=== PATIENT | male | born 1950 | race Caucasian/White ===

== ENCOUNTER → 2017-09-20 | Outpatient (CLI) | payer MEDICARE, BC ==
--- NOTE | 2017-09-20 11:36 | BD ---
EXAMINATION TYPE: MG DEXA axial skeleton. DATE OF EXAM: 09/20/2017 COMPARISON: NONE CLINICAL HISTORY: M81.0 Osteoporosis Height: Weight: 189.7 FRAX RISK QUESTIONS: Alcohol (3 or more units per day): no Family History (Parent hip fracture): no Glucocorticoids (More than 3mos): no (Ex: prednisone, prednisolone, methylprednisolone, dexamethasone, and hydrocortisone). History of Fracture in Adulthood: yes Secondary Osteoporosis: 1. Type 1 Diabetes: no 2. Hyperthyroidism: no 3. Menopause before 45: na 4. Malnutrition: no 5. Chronic liver disease: no Rheumatoid Arthritis: no Current Tobacco Use: no RISK FACTORS HISTORY OF: Hip Fracture (Right/Left): no Spine Fracture: no History of Wrist Fracture: no Surgery to Spine/Hip(right/left)/Wrist (right/left): no Family History of Osteoporosis: no Active: yes Diet low in dairy products/other sources of calcium: yes Lost more than 2 inches in height since high school: no Frequent falls: no Poor Health: no Hyperparathyroidism: no Adrenal Insufficiency: no MEDICATIONS: topomax. coumadin, asacol, lopid, simvastatin, amatripoline, pain med for migraines Thyroid Medications: synthroid How Lon years Additional History: current foot fx- broke it five months ago EXAM MEASUREMENTS: Bone mineral densitometry was performed using the [facility]. Bone mineral density as measured about the Lumbar spine is: ----- L1-L4(G/cm2): 1.169 T Score Values are as follows: ----- L2: -0.5 ----- L3: 0.5 ----- L4: 0.2 ----- L1-L4:-0.1 Bone mineral density baseline Bone mineral density about the R hip (g/cm2): 0.971 Bone mineral density about the L hip (g/cm2): 0.912 T Score values are as follows: -----R Neck: -0.5 -----L Neck: -0.9 -----R Total: 0.8 -----L Total: 0.3 Bone mineral density study of: baseline IMPRESSION: No evidence for osteoporosis or osteopenia. NOTE: T-SCORE=SD OF THE YOUNG ADULT MEAN.
== END | disposition home or self-care (01) ==
LOC: RADBDWWP 09:16
PROVIDERS: ATTEND Internal Medicine Geriatric Medicine
DX: M81.0 Age-related osteoporosis without current pathological fracture (principal)
CPT/HCPCS: 77080

== ENCOUNTER → 2017-12-27 | Outpatient (CLI) | payer MEDICARE, BC ==
--- NOTE | 2017-12-27 14:41 | CT ---
EXAMINATION TYPE: CT foot LT wo con DATE OF EXAM: 12/27/2017 COMPARISON: NONE HISTORY: Lt foot pain, displaced fracture fifth metatarsal subsequent encounter with delayed healing per order. CT DLP: 236 mGycm Automated exposure control for dose reduction was used. FINDINGS: There is fairly well corticated nonhealed fracture through the plantar base of the fifth metatarsal s een best on sagittal image 6 with roughly 3 mm gap that remains present. Osseous structures are demineralized likely from disuse hind to midfoot level causing pseudopermeativ e appearance. Lisfranc joints are maintained. Linear density in the superior lateral calcaneus is of uncertain etiology on sagittal image 13. No additional acute fracture or dislocation is seen. There is mild to moderate diffuse subcutaneous e jabari. Ankle mortise symmetry is preserved. Normal sinus tarsi fat is present. IMPRESSION: THERE IS NONHEALED MILDLY DISPLACED OR DISTRACTED BASE OF FIFTH METATARSAL FRACTURE ALONG PLANTAR DIANA FACE. INCOMPLETE HEALED PECK FRACTURE.
== END ==
LOC: RADCTMAIN 13:51
PROVIDERS: ATTEND Orthopaedic Surgery
DX: S92.352G Displaced fracture of fifth metatarsal bone, left foot, subsequent encounter for fracture with delayed healing (principal)
CPT/HCPCS: 36415; 82306

== ENCOUNTER → 2018-01-28 | Outpatient (CLI) | payer MEDICARE, BC ==
--- NOTE | 2018-01-28 15:43 | XR ---
EXAMINATION TYPE: XR chest 2V DATE OF EXAM: 01/28/2018 COMPARISON: Chest x-ray May 05, 2016. CTA chest June 09, 2016. HISTORY: Deep cough for 2 months. Bronchitis per order. TECHNIQUE: Frontal and lateral views of the chest are obtained. FINDINGS: Patchy left greater than bibasilar scarring and/or atelectasis. There is no suspicious fo chevy air space opacity, pleural effusion, or pneumothorax seen. The cardiac silhouette size is within normal limits. The osseous structures are intact. IMPRESSION: No suspicious acute pulmonary process.
== END | disposition home or self-care (01) ==
LOC: RADXRMAIN 15:04
PROVIDERS: ATTEND Internal Medicine Geriatric Medicine
DX: R05 Cough (principal)
CPT/HCPCS: 71046

== ENCOUNTER → 2018-02-04 | Outpatient (CLI) | payer MEDICARE, BC ==
--- NOTE | 2018-02-04 10:56 | CT ---
EXAMINATION TYPE: CT chest w con DATE OF EXAM: 02/04/2018 COMPARISON: 06/09/2016 HISTORY: Shortness of breath CT DLP: 311.9 mGycm, Automated exposure control for dose reduction was used. CONTRAST: Performed injected with 80 mL of Isovue 300. TECHNIQUE: Axial images were obtained at 5 mm thick sections. Reconstructed images are reviewed on [employer] computer in the coronal plane. FINDINGS: Portion of the thyroid visualized is normal. No suspicious lung nodules or focal infiltrates are present. No enlarged mediastinal or hilar adenopathy is evident. The ascending aorta diameter at the level o f the main pulmonary artery is 3.6 cm. The main pulmonary artery diameter at the bifurcation is 2.[address] sections are obtained through the upper abdomen. Abdomen is essentially unremarkable. Jamshid e reflux into the superior portion inferior vena cava may be present. IMPRESSIONS: 1. No acute pulmonary emboli.
== END | disposition home or self-care (01) ==
LOC: RADCTMAIN 08:09
PROVIDERS: ATTEND Internal Medicine Geriatric Medicine
DX: R06.02 Shortness of breath (principal)
CPT/HCPCS: 71260; Q9967

== ENCOUNTER → 2018-02-10 | Outpatient (CLI) | payer MEDICARE, BC | LOC: LABWHC1 14:28 | PROVIDERS: ATTEND Orthopaedic Surgery | DX: E55.9 Vitamin D deficiency, unspecified (principal) | CPT/HCPCS: 36415; 82306 ==

== ENCOUNTER → 2018-03-18 | Outpatient (CLI) | payer MEDICARE, BC ==
--- NOTE | 2018-03-18 15:21 | XR ---
Abdomen HISTORY: Abdominal pain Frontal view of the abdomen on 2 images Correlated to prior exam 05/21/2016 Lung bases are clear. There is no evident bowel obstruction or pneumoperitoneum. Bone mineralization is maintained, spinal curvature could be positional. Probable vascular calcifications again noted wit hin the pelvis. IMPRESSION: Stable exam, nonspecific abdomen
== END | disposition home or self-care (01) ==
LOC: RADXRMAIN 12:25
PROVIDERS: ATTEND Nurse Practitioner Family
DX: R10.9 Unspecified abdominal pain (principal)
CPT/HCPCS: 74018

== ENCOUNTER 2021-03-03 00:01 | Emergency (ER) | payer MEDICARE, BC ==
[2021-03-03 00:08] VITALS: TEMP 99.3
[2021-03-03] MEDS ORDERED: DIPH,PERTUS(ACELL)TETVAC-LF 0.5 ML VIAL IM ONE (00:17)
--- NOTE | 2021-03-03 00:41 | XR ---
EXAMINATION TYPE: XR hand complete RT DATE OF EXAM: 03/03/2021 COMPARISON: NONE HISTORY: Laceration TECHNIQUE: 3 views FINDINGS: There is narrowing and spurring at the first carpometacarpal joint. I see no fracture nor d islocation. There is no sign of a foreign body. The metacarpals are intact. There is some osteoarthritic narrowing of the second MP joint. 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 No fracture seen. No evidence of radiop aque foreign body.
[2021-03-03] MEDS ORDERED: LIDOCAINE 1%-EPI 1:100,000 20 ML VIAL SQ STA (00:59)
[2021-03-03] MEDS ORDERED: BACITRACIN OINT 1 EACH PACKET TOPICAL ONE (01:18)
--- NOTE | 2021-03-03 01:48 | ED ---
Wound/Laceration HPI - General Chief Complaint: Wound/Laceration Stated Complaint: Hand Laceration Time Seen by Provider: 03/03/21 00:11 Source: patient Mode of arrival: ambulatory Limitations: no limitations - History of Present Illness Initial Comments: 70 year-old male patient presents to the emergency department for evaluation of bleeding wound to the right hand. Patient states that he broke a drill bit off and it punctured through his hand. States this occurred around 7pm this evening. He did apply bandages but the bleeding would not stop so he presented here for further evaluation. He takes xarelto and baby aspirin. States his last tetanus was 8 years ago. Denies significant pain to the area. Denies any numbness or tingling to the hand. - Related Data Home Medications Medication Instructions Recorded Confirmed Acetaminophen [Tylenol] 1,000 mg PO Q4-6H PRN 05/05/16 06/09/16 Amitriptyline HCl 25 mg PO HS 05/05/16 06/09/16 Butalb/Acetaminophen/Caffeine 1 - 2 tab PO Q6H PRN MDD 6 TABLETS 05/05/16 06/09/16 [Rlfnlr-Pkckydzh-Cokp 50-325-40] IN 24 HOURS Ibuprofen [Motrin] 400 mg PO Q6HR PRN 05/05/16 06/09/16 Levothyroxine Sodium [Synthroid] 125 mcg PO DAILY 05/05/16 06/09/16 Simvastatin 40 mg PO HS 05/05/16 06/09/16 gemfibroziL [Gemfibrozil] 600 mg PO HS 05/05/16 06/09/16 Pantoprazole Sodium [Protonix] 40 mg PO DAILY 06/09/16 06/09/16 rOPINIRole HCL [Requip] 0.5 mg PO HS 06/09/16 06/09/16 Previous Rx's Medication Instructions Recorded Aspirin EC [Ecotrin] 81 mg PO DAILY #0 06/13/16 Warfarin [Coumadin] 7.5 mg PO DAILY@1800 #90 tab 06/13/16 Cephalexin [Keflex] 500 mg PO BID #14 cap 03/03/21 Allergies Allergy/AdvReac Type Severity Reaction Status Date / Time No Known Allergies Allergy Verified 03/03/21 00:08 Review of Systems ROS Statement: Those systems with pertinent positive or pertinent negative responses have been documented in the HPI. ROS Other: All systems not noted in ROS Statement are negative. Past Medical History Past Medical History: Deep Vein Thrombosis (DVT), GERD/Reflux, Hyperlipidemia, Pulmonary Embolus (PE), Sleep Apnea/CPAP/BIPAP, Thyroid Disorder Additional Past Medical History / Comment(s): colitits. Other HX: DVT and bilateral PEs in 2011, AMANDA with CPAP, narcolepsy, grave's disease with thyroidectomy, migraines, bilateral tinnitis, bilateral clark's point, arthritis in bilateral hands, bronchitis as child. History of Any Multi-Drug Resistant Organisms: None Reported Additional Past Surgical History / Comment(s): 05/10/16 colonoscopy, 04/2016 lumbar puncture, thyroidectomy , at [place] they cut above eyebrows to help with migraines- 2 yrs ago Past Anesthesia/Blood Transfusion Reactions: Motion Sickness Past Psychological History: No Psychological Hx Reported Smoking Status: Never smoker Past Alcohol Use History: None Reported Past Drug Use History: None Reported - Past Family History Father Family Medical History: COPD, Coronary Artery Disease (CAD) Additional Family Medical History / Comment(s): 1991 Mother Family Medical History: Asthma, Congestive Heart Failure (CHF), Diabetes Mellitus Additional Family Medical History / Comment(s): 2008 Brother(s) Family Medical History: No Reported History Sister(s) Family Medical History: No Reported History Son(s) Family Medical History: Seizure Disorder Daughter(s) Family Medical History: No Reported History General Exam Limitations: no limitations General appearance: alert, in no apparent distress, other (This is a well developed, well nourished adult male in no acute distress. Vital signs upon presentation are temperature 99.3F, pulse 83, respirations 20, blood pressure 150/89, pulse ox 99% on room air.) Respiratory exam: Present: normal lung sounds bilaterally. Absent: respiratory distress, wheezes, rales, rhonchi, stridor Cardiovascular Exam: Present: regular rate, normal rhythm, normal heart sounds. Absent: systolic murmur, diastolic murmur, rubs, gallop, clicks Extremities exam: Present: full ROM, normal capillary refill, other (There is puncture noted to the dorsal aspect of the right hand. There is active bleeding. Skin is otherwise pink, warm, dry. Cap refill less than 3 seconds. Radial pulses 2+.). Absent: tenderness, pedal edema, joint swelling, calf tenderness Neurological exam: Present: alert, oriented X3, CN II-XII intact Psychiatric exam: Present: normal affect, normal mood Skin exam: Present: warm, dry, intact, normal color. Absent: rash Course Vital Signs 03/03/21 03/03/21 00:05 02:01 Temperature 99.3 F Pulse Rate 83 78 Respiratory 20 18 Rate Blood Pressure 150/89 131/87 O2 Sat by Pulse 99 98 Oximetry Medical Decision Making - Medical Decision Making 70-year-old male patient presents for evaluation of puncture wound to the right hand. Physical examination did reveal puncture to the dorsal aspect of the right hand that was actively bleeding. Pressure dressing was removed bleeding continued. I did inject the area with lidocaine with epi. Dressing was reapplied. Reevaluated about 30 minutes, no more active bleeding was noted. X- ray was reviewed and did reveal evidence for a tiny metallic foreign body. I did inform patient of all results will be discharged on antibiotics. Instructed to follow-up with his primary care physician for recheck in 1-2 days. Return parameters were discussed in detail. He verbalizes understanding and agrees with this plan. My attending is Dr. Hernandez. - Radiology Data Radiology results: report reviewed, image reviewed Disposition Clinical Impression: Puncture wound of right hand Disposition: HOME SELF-CARE Condition: Good Instructions (If sedation given, give patient instructions): Puncture Wound (ED) Additional Instructions: Keep wound clean and dry. Leave initial dressing on for 24 hours. Cleanse twice daily with warm water and antibacterial soap. Complete antibiotic prescription in full. Follow up with the primary care physician for recheck in 1-2 days. Return for any new, worsning, or concerning symptoms. Prescriptions: Cephalexin [Keflex] 500 mg PO BID #14 cap Is patient prescribed a controlled substance at d/c from ED?: No Referrals: Faisal Cali MD [Primary Care Provider] - 1-2 days Time of Disposition: 01:48
[2021-03-03 02:02] VITALS: BP 131/87; PULSE 78; RESP 18
== END 2021-03-03 02:02 | disposition home or self-care (01) ==
LOC: EC 00:01
DX: S61.431A Puncture wound without foreign body of right hand, initial encounter (principal); K21.9 Gastro-esophageal reflux disease without esophagitis; E78.5 Hyperlipidemia, unspecified; G47.33 Obstructive sleep apnea (adult) (pediatric); E07.9 Disorder of thyroid, unspecified; Z86.711 Personal history of pulmonary embolism; Z99.81 Dependence on supplemental oxygen; Z79.82 Long term (current) use of aspirin; Z86.718 Personal history of other venous thrombosis and embolism; X58.XXXA Exposure to other specified factors, initial encounter; Z23 Encounter for immunization
CPT/HCPCS: 90471; 90715; 96372; 99283

== ENCOUNTER → 2024-05-24 | Outpatient (CLI) | payer MEDICARE, BC ==
[2024-05-24 15:12] LABS: Basophils # (A) 0.08 X 10*3/uL (0.00-0.10); Eosinophils # (A) 0.03 X 10*3/uL (0.04-0.35); Eosinophils % (A) 0.4 %; HCT 45.2 % (39.6-50.0); HGB 14.8 g/dL (13.0-17.0); Lymphocytes # (A) 1.78 X 10*3/uL (0.90-5.00); Lymphocytes % (A) 22.1 %; MCHC 32.7 g/dL (32.0-37.0); MCV 97.8 FL (80.0-97.0); Mean Platelet Volume 10.2 FL (9.5-12.2); Monocytes # (A) 0.65 X 10*3/uL (0.20-1.00); Monocytes % (A) 8.1 %; NRBC Per 100 WBC 0 X 10*3/uL (0.00-0.01); Neutrophils # (A) 5.36 X 10*3/uL (1.80-7.70); Neutrophils % (A) 66.7 %; Platelet Count 293 X 10*3/uL (140-440); RBC 4.62 X 10*6/uL (4.40-5.60); WBC 8.04 X 10*3/uL (4.50-10.00)
[2024-05-24 15:13] LABS: ALT 27 U/L (10-49); AST 16 U/L (14-35); Albumin 4.4 g/dL (3.8-4.9); Albumin/Globulin Ratio 1.63 Ratio (1.60-3.17); Alkaline Phosphatase 98 U/L (41-126); BUN/Creat Ratio 18.25 Ratio (12.00-20.00); Blood Urea Nitrogen 21.9 mg/dL (9.0-27.0); C Reactive Protein <0.30 mg/dL (0.00-0.80); Calcium 9.8 mg/dL (8.7-10.3); Carbon Dioxide 22.2 mmol/L (21.6-31.8); Chloride 106 mmol/L (96-109); Globulin 2.7 g/dL (1.6-3.3); Glucose 97 mg/dL (70-110); Potassium 4.4 mmol/L (3.5-5.5); Sodium 140 mmol/L (135-145); Total Bilirubin 0.5 mg/dL (0.3-1.2); Total Protein 7.1 g/dL (6.2-8.2)
[2024-05-24 15:40] LABS: Erythrocyte Sedimentation Rate 19 mm/Hr (0-20)
== END | disposition home or self-care (01) ==
LOC: LABWHC1 11:28
PROVIDERS: ATTEND Nurse Practitioner Family
DX: K51.90 Ulcerative colitis, unspecified, without complications (principal)
CPT/HCPCS: 36415; 80053; 83993; 85025; 85652; 86140

== ENCOUNTER → 2024-06-13 | Outpatient (CLI) | payer MEDICARE, BC ==
--- NOTE | 2024-06-13 10:13 | XR ---
EXAMINATION TYPE: XR abdomen 1V DATE OF EXAM: 06/13/2024 COMPARISON: NONE HISTORY: Pain TECHNIQUE: One view abdominal series FINDINGS: The osseous structures are intact. The bowel gas pattern is nonspecific. Lung bases are clear. Bila teral SI joint arthropathy and hypertrophic hip arthropathy. Vascular phleboliths noted. Fecal debris along the right colon. IMPRESSION: 1. Nonspecific abdomen. [facility], , 06/13/2024 10:11 AM
== END | disposition home or self-care (01) ==
LOC: RADXRMAIN 09:38
PROVIDERS: ATTEND Internal Medicine Gastroenterology
DX: R10.30 Lower abdominal pain, unspecified (principal)
CPT/HCPCS: 74018

== ENCOUNTER → 2024-06-20 | Outpatient (CLI) | payer MEDICARE, BC | LOC: LABWHC1 11:39 | PROVIDERS: ATTEND Urology | DX: R97.20 Elevated prostate specific antigen [PSA] (principal) | CPT/HCPCS: 36415; 84153 ==

== ENCOUNTER → 2024-07-28 | Outpatient (CLI) | payer MEDICARE, BC ==
[2024-07-28 15:45] LABS: African American GFR (CKD) 65 (>60 ml/min/1.73 sqM); Albumin 4.1 g/dL (3.5-5.0); Anion Gap 3 mmol/L; Blood Urea Nitrogen 21 mg/dL (9-20); Calcium 8.7 mg/dL (8.4-10.2); Carbon Dioxide 24 mmol/L (22-30); Chloride 114 mmol/L (98-107); Glucose 109 mg/dL (74-99); Non-African American GFR(CKD) 56 (>60 ml/min/1.73 sqM); Phosphorus 2.5 mg/dL (2.5-4.5); Potassium 4.2 mmol/L (3.5-5.1); Sodium 141 mmol/L (137-145)
--- NOTE | 2024-07-28 17:57 | CT ---
EXAMINATION TYPE: CT abdomen pelvis wo/w con DATE OF EXAM: 07/28/2024 5:18 PM COMPARISON: 05/21/2016 CLINICAL INDICATION: Male, 74 years old with history of R10.30 LOWER ABDOMINAL PAIN, UNSPECIFIED; Pt having lower abdominal pain for months. TECHNIQUE: Axial CT abdomen pelvis wo/w con;Sagittal and coronal reformats were created on a [employer] workstation. Contrast used:80ml mL of Isovue 300 with IV Contrast, (none if empty) Oral contrast used: with Oral Contrast (none if empty) CT DLP: 1195.2 mGycm, Automated exposure control for dose reduction was used. FINDINGS: LOWER CHEST: Unremarkable ABDOMEN LIVER: Unremarkable GALLBLADDER AND BILE DUCTS: Unremarkable. PANCREAS: Unremarkable. SPLEEN: Unremarkable. ADRENAL GLANDS: Unremarkable. KIDNEYS AND URETERS: Nonobstructing left 3 mm calculus. No right renal calculus. No obstructive uropa thy. PELVIS BLADDER: No evidence for wall thickening or mass given limitations of exam. REPRODUCTIVE: Prostate is enlarged in size measuring 4.8 cm in transverse dimension. ABDOMEN & PELVIS STOMACH AND BOWEL: No evidence of bowel obstruction. Scattered colonic diverticula. Blunting of the a scending colon/cecum with large amount stool. PERITONEUM/RETROPERITONEUM: No evidence of pneumoperitoneum or free fluid. VASCULATURE: No evidence of aortic aneurysm. MUSCULOSKELETAL: No acute osseous abnormalities. Moderate disc degeneration changes are present throu ghout the thoracolumbar spine. LYMPH NODES: No gross evidence for lymphadenopathy. SOFT TISSUE/ABDOMINAL WALL: Fat-containing umbilical hernia. Fatty changes to the inguinal canal on t he left. IMPRESSION: 1. No evidence for acute abdominal process. 2. Many of the cecum/ascending colon with large amount stool in the right colon. 3. Nonobstructing left 3 mm calculus. No right renal calculus. No obstructive uropathy. 4. Colonic diverticulosis. 5. Prostatomegaly correlate serum PSA. [facility], , 07/28/2024 5:54 PM
== END | disposition home or self-care (01) ==
LOC: RADCTMAIN 15:08
PROVIDERS: ATTEND Internal Medicine Gastroenterology
DX: K57.30 Diverticulosis of large intestine without perforation or abscess without bleeding (principal); N40.0 Benign prostatic hyperplasia without lower urinary tract symptoms; R19.5 Other fecal abnormalities
CPT/HCPCS: 80069; 74178; 36415; Q9967

== ENCOUNTER → 2024-12-19 | Outpatient (CLI) | payer MEDICARE, BC | END | disposition home or self-care (01) | LOC: LABWHC1 09:14 | PROVIDERS: ATTEND Urology | DX: R97.20 Elevated prostate specific antigen [PSA] (principal) | CPT/HCPCS: 36415; 84153 ==